=== PATIENT | male | born 1995 | race African-American/Black ===

== ENCOUNTER 2017-07-01 16:56 | Emergency (ER) | payer SELFPAY ==
[2017-07-01 16:57] VITALS: BP 148/77; PULSE 63; RESP 14; TEMP 98; O2SAT 97
[2017-07-01 18:52] VITALS: BP 127/66; PULSE 100; RESP 18; O2SAT 98
--- NOTE | 2017-07-01 20:50 | PD ---
HPI Chief Complaint: Depression Time Seen by Provider: 20:25 Travel History International Travel<30 days: No Contact w/Intl Traveler<30days: No Traveled to known affect area: No History of Present Illness HPI 22-year-old male that presents to the ED for evaluation of depression. Patient states that his been having issues with depression for some time. Per patient she's having falls with relationships as well. Per patient he attributes this to family issues. Especially with his father. He denies any other medical issues. He denies any urinary or bowel movement issues. No suicidal or homicidal ideation. Per patient he comes here for help for his depression. He came here voluntarily. Denies any drugs or alcohol. No history of mental illness on himself. Allergy to Diflucan. Symptoms appear to have worsened the past couple of days secondary to trouble at school as well as with "relationships". PFSH Past Medical History Asthma: Yes Respiratory: Yes (ASTHMA) Past Surgical History Surgical History: No Previous Surgery Social History Alcohol Use: No Tobacco Use: No Substance Use: No Allergies-Medications (Allergen,Severity, Reaction): Coded Allergies: fluconazole (Verified Allergy, Unknown, 07/01/17) Reported Meds & Prescriptions Reported Meds & Active Scripts Active No Active Prescriptions or Reported Medications Review of Systems Except as stated in HPI: all other systems reviewed are Neg Physical Exam Narrative GENERAL: SKIN: Warm and dry. HEAD: Atraumatic. Normocephalic. EYES: Pupils equal and round. No scleral icterus. No injection or drainage. ENT: No nasal bleeding or discharge. Mucous membranes pink and moist. NECK: Trachea midline. No JVD. CARDIOVASCULAR: Regular rate and rhythm. RESPIRATORY: No accessory muscle use. Clear to auscultation. Breath sounds equal bilaterally. GASTROINTESTINAL: Abdomen soft, non-tender, nondistended. Hepatic and splenic margins not palpable. MUSCULOSKELETAL: Extremities without clubbing, cyanosis, or edema. No obvious deformities. NEUROLOGICAL: Awake and alert. No obvious cranial nerve deficits. Motor grossly within normal limits. Five out of 5 muscle strength in the arms and legs. Normal speech. PSYCHIATRIC: Appropriate mood and affect; insight and judgment normal. Data Data Last Documented VS Vital Signs Date Time Temp Pulse Resp B/P (MAP) Pulse Ox O2 Delivery O2 Flow Rate FiO2 07/01/17 18:52 100 18 127/66 (86) 98 Room Air 07/01/17 16:57 98.0 Orders Orders Complete Blood Count With Diff (07/01/17 17:07) Thyroid Stimulating Hormone (07/01/17 17:07) Basic Metabolic Panel (Bmp) (07/01/17 17:07) Psych Screen (07/01/17 17:07) Drug Screen, Random Urine (07/01/17 17:07) Alcohol (Ethanol) (07/01/17 17:07) Ed Discharge Order (07/01/17 20:46) MDM Medical Decision Making Medical Screen Exam Complete: Yes Emergency Medical Condition: Yes Medical Record Reviewed: Yes Differential Diagnosis Depression versus suicidal ideation versus anxiety versus adjustment disorder versus mood disorder versus bipolar disorder versus schizophrenia versus paranoid disorder versus psychosis versus substance abuse versus alcohol abuse versus alcohol induced psychosis versus homicidality addition versus cutting versus personality disorder Narrative Course 22-year-old male that presents to the ED for evaluation of psych. Patient was properly examined and was found to have signs and symptoms consistent psychiatric illness. Patient was already screening by psych nurse. Patient refused labs. I believe this is reasonable. Patient is not suicidal or homicidal. Patient was given information about her appears in the area as well as possibility follow-up with psychiatrist. She prefers to follow up patient. I think this would a good plan for him. Patient agrees with this. Patient understands reasons to come back. Patient was medically cleared. Patient was given information for outpatient resources. Follow with therapies. See ED worsening symptoms. Diagnosis Primary Impression: Mood disorder Patient Instructions: General Instructions Additional Instructions: Follow up with PCP. See ED if worst. Med/Other Pt SpecificInfo: No Change to Meds Scripts No Active Prescriptions or Reported Meds Disposition: 01 DISCHARGE HOME Condition: Stable Hayden Campbell Jul 01, 2017 20:50
== END 2017-07-01 21:24 | disposition home or self-care (01) ==
LOC: NEPJ 16:56
DX: F39 Unspecified mood [affective] disorder (principal); J45.909 Unspecified asthma, uncomplicated; Z88.8 Allergy status to other drugs, medicaments and biological substances
CPT/HCPCS: 99283